=== PATIENT | female | born 1945 ===

== ENCOUNTER 2023-07-14 14:19 | Emergency (ER) | payer OTHER ==
[~2023-07-14] VITALS: Ht 154.9 cm; Wt 55.8 kg
[2023-07-14] MEDS ORDERED: CRESTOR20 MG PO (14:40)
[2023-07-14] MEDS ORDERED: ZESTRIL10 M1 PO (14:40)
[2023-07-14] MEDS ORDERED: TOPROL XL50 M1 PO (14:40)
[2023-07-14 18:14] LABS: HEMATOCRIT 41.7 % (36.0-45.00); MEAN CELL VOLUME 85.9 fL (80.00-100.00); MEAN CORPUSCULAR HGB CONC 33.7 g/dl (32.0-36.0); PLATELET COUNT 258 K/uL (150-450); RED BLOOD COUNT 4.85 M/uL (4.00-6.00); RED CELL DISTRIBUTION WIDTH 14.6 % (11.5-14.5)
[2023-07-14] MEDS ORDERED: FUROsemide 20 MG/2 ML VIAL IV ONE (18:30)
[2023-07-14] MEDS ORDERED: METHYLPREDNISOLONE SOD SUCC 125 MG VIAL IV ONE (18:30)
[2023-07-14] MEDS ORDERED: IPRATROPIUM BROMIDE 0.5 MG/2.5 ML AMPUL.NEB IH SCH (18:30)
[2023-07-14] MEDS ORDERED: LEVALBUTEROL HCL 1.25 MG/3 ML SOLUTION IH SCH (19:00)
[2023-07-14 19:36] LABS: ABG PH 7.449 (7.35-7.45); ABG PO2 79.3 mmHg (80-100); ABG pCO2 35.6 mmHg (35-45); BASE EXCESS 0.6 mmol/l; BICARBONATE 24.1 mmol/l (23-25); SaO2 96.2 %; Tco2 25.2 mmol/l; o2 21 %
[2023-07-14 19:37] LABS: allen test SATISFACTORY; puncture site RADIAL RIGHT
== END 2023-07-14 22:01 | disposition home or self-care (01) ==
LOC: ER 14:19
PROVIDERS: Emergency Medicine
DX: J32.9 Chronic sinusitis, unspecified (principal); I20.89 Other forms of angina pectoris; I10 Essential (primary) hypertension; E78.00 Pure hypercholesterolemia, unspecified; Z87.442 Personal history of urinary calculi; Z98.890 Other specified postprocedural states; Z20.822 Contact with and (suspected) exposure to COVID-19
CPT/HCPCS: 36415; 82803; 94640; 99285; J1940; J2930